=== PATIENT | male | born 1995 | race Caucasian/White ===

== ENCOUNTER 2022-06-09 12:46 | Inpatient (IN) | payer MEDICAID, OTHER ==
[~2022-06-09] VITALS: Ht 165.1 cm; Wt 88.1 kg
[2022-06-09] MEDS ORDERED: TETANUS, DIPHTHERIA, PERTUSSIS VAC/PF 0.5ML (>10YR OLD) IM ONE (13:45)
[2022-06-09] MEDS ORDERED: LEVETIRACETAM 1000MG PREMIX 100 ML IV ONE (13:45)
[2022-06-09] MEDS ORDERED: LIDOCAINE HCL/EPINEPHRINE 1%-EPI 1:100,000 20 ML VIAL INFIL ONE (13:45)
[2022-06-09] MEDS ORDERED: ONDANSETRON HCL 4MG/2ML INJ IV ONE ×2 (13:45→18:00)
[2022-06-09] MEDS ORDERED: ONDANSETRON 4MG ODT PO ONE (13:45)
[2022-06-09] MEDS ORDERED: BACITRACIN ZINC OINT UDPKT TOP ONE (13:45)
[2022-06-09] MEDS ORDERED: LIDOCAINE HCL/EPINEPHRINE 1%-EPI 1:100,000 10 ML VIAL IJ SCH (14:00)
[2022-06-09 14:18] LABS: BASOPHILS % 0.3 % (0.0-2.0); EOSINOPHILS % 0.2 % (0.0-5.0); HEMATOCRIT. 50.6 % (42.0-52.0); HEMOGLOBIN. 17.3 g/dL (14.0-18.0); LYMPHOCYTES % 10.8 % (20.0-50.0); MEAN CORPUSCULAR HEMOGLOBIN 32.7 pg (28.0-32.0); MEAN CORPUSCULAR VOLUME 95.3 fL (80.0-94.0); MEAN PLATELET VOLUME 9.7 fl (7.4-10.4); NEUTROPHILS % 83.7 % (40.0-76.0); PLATELET 324 x1000/uL (130-400); RED BLOOD CELL COUNT 5.31 mill/uL (4.7-6.1); RED CELL DISTRIBUTION WIDTH 13.1 % (11.6-14.6)
[2022-06-09 14:26] LABS: CHLORIDE 107 mEq/L (98-107)
[2022-06-09 14:33] LABS: PARTIAL THROMBOPLASTIN TIME 23.1 sec (23.4-31.0); PROTHROMBIN TIME 10.6 sec (9.6-11.0)
[2022-06-09] MEDS ORDERED: IOHEXOL-300 100 ML BOTTLE ONE (14:33)
[2022-06-09 14:57] LABS: ETHANOL BLOOD 270 mg/dL
[2022-06-09] MEDS ORDERED: NICARDIPINE 100 MG in SODIUM CHLORIDE 0.9% 60 ML IV PRN (18:15)
[2022-06-09 23:37] VITALS: BP 144/89
[2022-06-10] VITALS (37 sets, daily range): BP systolic 112–156; BP diastolic 38–127
[2022-06-10] MEDS ORDERED: DEXT 5%/LACTATED RINGERS 1,000 ML IV SCH
[2022-06-10] MEDS ORDERED: ONDANSETRON HCL 4MG/2ML INJ IV PRN
[2022-06-10] MEDS: DEXT 5%/LACTATED RINGERS 1,000 ML IV SCH ×2 (00:56→17:23)
[2022-06-10] MEDS: LEVETIRACETAM 500MG PREMIX 100 ML IV SCH ×3 (02:01→23:01)
[2022-06-10] MEDS: MORPHINE SULFATE 2 MG/ML CPJ (NOT FOR IM USE) IV PRN ×3 (04:14→12:39)
[2022-06-10 04:19] LABS: BASOPHILS % 0.3 % (0.0-2.0); HEMATOCRIT. 44.5 % (42.0-52.0); HEMOGLOBIN. 15.4 g/dL (14.0-18.0); LYMPHOCYTES % 12.2 % (20.0-50.0); MEAN CORPUSCULAR HEMOGLOBIN 32.7 pg (28.0-32.0); MEAN CORPUSCULAR VOLUME 94.5 fL (80.0-94.0); MEAN PLATELET VOLUME 9.8 fl (7.4-10.4); MONOCYTES % 11.8 % (2.0-8.0); NEUTROPHILS % 75.7 % (40.0-76.0); PLATELET 264 x1000/uL (130-400); RED CELL DISTRIBUTION WIDTH 13.3 % (11.6-14.6)
[2022-06-10 04:25] LABS: CHLORIDE 109 mEq/L (98-107)
[2022-06-10] MEDS: HYDROCODONE/ACETAMINOPHEN 10/325MG TABLET PO PRN ×2 (15:20→20:43)
[2022-06-11] VITALS: BP 139/84
[2022-06-11] MEDS: HYDROCODONE/ACETAMINOPHEN 10/325MG TABLET PO PRN ×3 (03:46→12:13)
[2022-06-11 03:48] VITALS: BP 139/90
[2022-06-11 08:00] VITALS: BP 130/90
[2022-06-11 08:03] LABS: CLARITY URINE CLOUDY (CLEAR); COLOR URINE YELLOW (YELLOW); KETONES URINE TRACE (NEGATIVE); LEUKOCYTE ESTERASE URINE NEGATIVE (NEGATIVE); NITRITE URINE NEGATIVE (NEGATIVE); OCCULT BLOOD URINE NEGATIVE (NEGATIVE); PH URINE 6.5 (4.5-8.0); PROTEIN URINE NEGATIVE (NEGATIVE); UROBILINOGEN URINE 0.2 E.U./dL (0.2-1.0)
[2022-06-11 09:05] LABS: *AMPHETAMINES SCREEN URINE NEGATIVE (NEGATIVE); *BARBITURATES SCREEN URINE NEGATIVE (NEGATIVE); *BENZODIAZEPINES SCREEN URINE NEGATIVE (NEGATIVE); *COCAINE SCREEN URINE NEGATIVE (NEGATIVE); CANNABINOID URINE SCREEN PRESUMTIVE POSITIVE (NEGATIVE); METHADONE URINE SCREEN NEGATIVE (NEGATIVE); OPIATES URINE SCREEN PRESUMTIVE POSITIVE (NEGATIVE); PHENCYCLIDINE URINE SCREEN NEGATIVE (NEGATIVE)
[2022-06-11] MEDS: DEXT 5%/LACTATED RINGERS 1,000 ML IV SCH (09:54)
[2022-06-11 12:00] VITALS: BP 142/85
[2022-06-11] MEDS: LEVETIRACETAM 500MG PREMIX 100 ML IV SCH (12:13)
[2022-06-11 12:57] LABS: BASOPHILS % 0.8 % (0.0-2.0); EOSINOPHILS % 1.7 % (0.0-5.0); HEMOGLOBIN. 14.5 g/dL (14.0-18.0); LYMPHOCYTES % 20.5 % (20.0-50.0); MEAN CORPUSCULAR HEMOGLOBIN 32.3 pg (28.0-32.0); MEAN CORPUSCULAR VOLUME 95.7 fL (80.0-94.0); MEAN PLATELET VOLUME 10.4 fl (7.4-10.4); MONOCYTES % 12.4 % (2.0-8.0); NEUTROPHILS % 64.6 % (40.0-76.0); PLATELET 206 x1000/uL (130-400); RED BLOOD CELL COUNT 4.49 mill/uL (4.7-6.1); RED CELL DISTRIBUTION WIDTH 12.8 % (11.6-14.6)
[2022-06-11 13:07] LABS: CHLORIDE 101 mEq/L (98-107)
[2022-06-11 14:40] VITALS: BP 152/81
[2022-06-11 16:00] VITALS: BP 152/81
== END 2022-06-11 16:20 | disposition home or self-care (01) | DRG 55 ==
LOC: ER 13:08 → MICUSO 14:33 → ENRESERV 22:42 → 4WST 06-10 20:57
PROVIDERS: ADMIT Family Medicine; ATTEND Family Medicine
DX: S06.6X0A Traumatic subarachnoid hemorrhage without loss of consciousness, initial encounter (principal); D72.829 Elevated white blood cell count, unspecified; M47.892 Other spondylosis, cervical region; F10.10 Alcohol abuse, uncomplicated; S01.112A Laceration without foreign body of left eyelid and periocular area, initial encounter; S02.91XA Unspecified fracture of skull, initial encounter for closed fracture; F12.90 Cannabis use, unspecified, uncomplicated; X94.0XXA Assault by shotgun, initial encounter; Y93.89 Activity, other specified; Y92.89 Other specified places as the place of occurrence of the external cause; Y99.8 Other external cause status
CPT/HCPCS: 36415; 71260; 74177; 80048; 80053; 80305; 80307; 80320; 80329; 81003; 85025; 90715; 93005; 99291; J1953; J2270; J2405; J3490; J7070; J7121; Q0162; Q9967; G0480